=== PATIENT | male | born 1975 | race Caucasian/White ===

== ENCOUNTER 2025-09-06 11:27 | Outpatient (REF) | payer MEDICAID, SELFPAY ==
--- OUTSIDE RECORDS SUMMARY | 2025-09-06 13:55 | XMS_ITS | Clinical Summary ---
Author Organization [facility] Address [address] [place] [id number] Phone Care Team Providers Care Animal Groomer Name Role Phone Yoseph Tejeda DO Primary Care Provider [phone] Allergies Active Allergy Reactions Criticality Noted Date Comments Milk 10/19/2018 Paroxetine Hcl 10/19/2018 Medications HYDROcodone-annette taminophen (NORCO) 5-325 mg per tablet Take 1 tablet by mouth every 6 (six) hours as needed for pain (specific location in comments). Active LORazepam (ATIVAN) 0.5 MG tablet Take 0.5 mg by mouth every 6 (six) hours as needed for anxiety. Active cyclobenzaprine (FLEXERIL) 10 MG tablet Take 10 mg by mouth 3 (three) times a day as needed for muscle spasms. Active dextroamphetami ne-amphetamine (ADDERALL) 20 mg Tab tablet Take 20 mg by mouth 2 (two) times a day. Active Active Problems No known active problems Encounters Date Type Department Care Team Description 07/03/2025 2:43 PM EDT - 07/03/2025 11:59 PM EDT Hospital Encounter [facility] [address] [place] [address] Yoseph Tejeda DO Discharge Disposition: Home or Self Care 07/03/2025 Transcribe Orders [facility] [address] [place] [address] Yoseph Tejeda DO from Last 3 Months Social History Tobacco Use Types Packs/Day Years Used Date Smoking Tobacco: Never Smokeless Tobacco: Never Alcohol Use Standard Drinks/Week Comments Yes 0 (1 standard drink = 0.6 oz pur e alcohol) Education Answer Date Recorded Are you interested in more education? Not on charan e 03/11/2023 Are you concerned about learning? Not on file 03/11/2023 No 03/11/2023 No 03/11/2023 Digital Access Answer Date Recorded No 04/11/2023 No 04/11/2023 No 04/11/2023 Reliable internet access at home? Not on file 04/11/2023 Device with a working camera? Not on file Sex and Gender Information Value Date Recorded Sex Assigned at Male 07/02/2025 6:05 PM EDT Legal Sex Male 9:27 PM EDT Gender Identity Male 07/02/2025 6:05 PM EDT Sexual Orientation Straight 07/02/2025 6: 05 PM EDT Last Filed Vital Signs Vital Sign Reading Time Taken Comments Blood Pressure 146/78 10/19/2018 6:45 PM EST Pulse 82 10/19/2018 5:52 PM EST Temperature 36.8 C (98.3 F) 10/19/2018 5:52 PM EST Respiratory Rate - - Oxygen Saturation 98% 10/19/2018 5:52 PM EST Inhaled Oxygen Concentration - - Weight 72.6 kg (160 lb) 10/19/2018 5:52 PM EST Height 170.2 cm (5' 7 ) 10/19/2018 5:52 PM EST Body Mass Index 25.06 10/19/2018 5:52 PM EST Plan of Treatment Health Maintenance Due Date Last Done Comments Adult Td,Tdap Booster 1976 LIPID PANEL 1976 DEPRESSION SCREENING 1988 HEPATITIS C SCREENING 1994 HIV ONE-TIME SCREENING (18-6 5 YEARS) 1994 PNEUMOCOCCAL VACCINES (0-49 years) (1 of 2 - PCV) 1995 COLOGUARD 2021 COLONOSCOPY 2021 COLORECTAL CANCER SCREENING 2021 FIT TEST 2021 FOBT 2021 SIGMOIDOSCOPY 2021 VIRTUAL COLONOSCOPY 2021 INFLUENZA VACCINE (#1) 2025 COVID-19 VACCINE (3 - 2024-2 6 season) 2025 08/04/2021, 07/13/2021 SMOKING STATUS SCREENING (On ce After 26 Yrs) Completed 10/19/2018 HEPATITIS A VACCINES Aged Out No long er eligible based on patient's age to complete this topic HIB VACCINES Aged Out No longer eligi ble based on patient's age to complete this topic MENINGOCOCCAL VACCINES (ACWY) Aged Out No longer eligible based on patient's age to complete this topic MENINGOCOCCAL VACCINES (B) Aged Out N o longer eligible based on patient's age to complete this topic Medical Devices Not on file Procedures Procedure Name Priority Date/Time Associated Diagnosis Comments PULMONARY FUNCTION TEST Routine 07/03/2025 3:43 PM EDT Uncomplicated asthma, unspecified asthma severity, unspecified whether persistent from Last 3 Months Results * Pulmonary Function Test Reason for Exam: Asthma; Type of PFT Test: Spirometry with bronchodilator, Lung Volumes, DLCO; Performing Location: [facility] (07/03/2025 3:43 PM EDT) [facility] Signature FEV1 3.50 liters FVC 4.43 liters FEV1/FVC 79 % TLC 5.97 liters DLCO 19.89 ml/mmHg sec Anatomical Region Laterality Modality Other Impressions 07/03/2025 3:43 PM EDT PULMONARY FUNCTION STUDIES Full pulmonary function studies were performed on this 50 y.o. year-old male for evaluation of asthma. Review of the medical record reveals that the patient is a never smoker. Prior pulmonary function studies are not available for comparison. SPIROMETRY: The FEV1 is normal at 3.60 L or 104% predicted. The FVC is normal at 4.43 L or 107% predicted. The FEV1/FVC ratio is normal at 79%. After the administration of a bronchodilator agent, there is no technically significant change. FLOW-VOLUME LOOPS: Evaluation of the flow-volume loops reveals normal morphology of both the inspiratory and expiratory limbs with no significant difference when comparing the tracings performed pre- and post-bronchodilator. LUNG VOLUME MEASUREMENTS BY PLETHYSMOGRAPHY: The total lung capacity is normal at 5.97 L or 92% predicted. The RV/TLC ratio is normal at 26%. DIFFUSION CAPACITY: The diffusion capacity is mildly impaired (z-score between - 1.65 and -2.5) at 19.9 mL/mmHg sec or 74% predicted. Resting oxygen saturation is 98% on room air. IMPRESSION: Abnormal pulmonary function studies as evidenced primarily by an isolated mild impairment in diffusion capacity possibly secondary to anemia, pulmonary vascular disease and/or early interstitial lung disease. Lung volumes are normal. Spirometry reveals no evidence of airflow limitation and no bronchodilator response. Technical Note: As of 09/25/2024, the [facility] Pulmonary Function Testing (PFT) Laboratory transitioned from using race-specific to using race-neutral equations for determining lung function predicted values for all persons. Due to this change some individuals previously classified as either normal or abnormal may now change from one to the other category without a true change in lung function. Such changes, as well as changes in severity classification, should be considered broadly and in their clinical context. Absolute values of lung function are unaffected. For further questions please contact the interpreting physician or PFT laboratory administrative director. For further discussion of this issue please see Miguel et al [facility] 2022;[phone]. Please Note: Not all PFT labs within, or outside of, our system will be transitioning to new reference equations at the same time. For this reason, please pay close attention to absolute values when comparing results done at different testing locations within or outside of our system. us Yoseph A Bigda DO PFT ORDERABLES Final Result from Last 3 Months Insurance [facility] Care Teams Animal Groomer Relationship Specialty Start Date End Date Yoseph Tejeda DO [email or web address] PCP - General 08/30/17 Additional Source Comments The information contained in this document represents components of the legal health record. It is not the complete legal health record.[facility]
[2025-09-06 18:29] LABS: MANUAL DIFF FLAG NO
[2025-09-06 18:32] LABS: Hematocrit 43.6 % (42.0-52.0); Hemoglobin 14.4 g/dl (14.0-18.0); Imm Gran Abs Auto 0.02 X10*3/uL (0.00-0.03); Imm Gran Pct Auto 0.3 % (0.0-0.4); Lymphocytes Absolute Auto 1.8 X10*3/uL (1.2-4.9); Mean Corpuscular HGB Conc 33.0 g/dl (31.0-36.0); Mean Corpuscular Hemoglobin 29.6 pg (27.0-33.0); Mean Corpuscular Volume 89.7 fL (80.0-98.0); NRBC Abs Auto 0.000 X10*3/uL (0.0-0.012); NRBC Pct Auto 0.0 /100WBC (0.0-0.2); Platelet Count 300 X10*3/uL (160-400); Red Blood Count 4.86 X10*6/uL (4.60-5.80); White Blood Count 6.6 X10*3/uL (4.8-10.8)
[2025-09-06 19:06] LABS: Alanine Aminotransferase 55 U/L (0-40); Albumin Level 4.9 g/dL (3.5-5.0); Alkaline Phosphatase 37 U/L (39-117); Anion Gap 12 (12-20); Aspartate Amino Transferase 36 U/L (5-37); Blood Urea Nitrogen 15 mg/dL (9-16); Calcium 9.3 mg/dL (8.4-10.2); Carbon Dioxide 26 mmol/L (22-29); Chloride 105 mmol/L (96-108); Estimated Glomerular Filt Rate > 60; Potassium 4.5 mmol/L (3.3-5.1); Sodium 138 mmol/L (135-145); Total Protein 7.5 g/dL (6.5-8.0)
[2025-09-06 19:14] LABS: Thyroid Stimulating Hormone 1.32 uIU/mL (0.32-4.0)
[2025-09-06 19:19] LABS: Folate 10.2 ng/mL (> or = 4.0); Vitamin B12 270 pg/mL (200-900)
[2025-09-09 17:12] LABS: Lyme Abs Screen <0.90 index
== END 2025-09-06 11:28 | disposition home or self-care (01) ==
LOC: HO.MANLDS 11:27
PROVIDERS: Visit Provider Internal Medicine
DX: R53.82 Chronic fatigue, unspecified (principal)
CPT/HCPCS: 36415; 80053; 82306; 82607; 82746; 84403; 84443; 85025; 86140; 86617; 86618